=== PATIENT | male | born 1945 | race Caucasian/White ===

== ENCOUNTER 2017-08-25 09:08 | Inpatient (IN) | payer OTHER ==
[2017-07-30 13:12] VITALS: BMI 33.0
--- NOTE | 2017-07-30 13:47 | PAT Medication Instructions ---
Service Date Jul 30, 2017. Current Home Medication List Aspirin Enteric Coated (Ecotrin Or Generic *), 81 MG PO HS Losartan Potassium (Cozaar), 25 MG PO QPM Metoprolol Succ (Toprol Xl) (Toprol-Xl), 50 MG PO BID Multiple Minerals (Calcium/Magnesium/Zinc), 1 TAB PO QPM Omeprazole (Omeprazole), 1 TAB PO QDL Rosuvastatin Calcium (Crestor), 40 MG PO HS Turmeric (Curcuma Longa) (Turmeric), 1,000 MG PO QDL Medication Instructions For Your Scheduled Surgery - Hold the following medications 2 weeks prior to surgery: Turmeric (Curcuma Longa) (Turmeric), 1,000 MG PO QDL - Hold the following medications 24 hours prior to surgery: Losartan Potassium (Cozaar), 25 MG PO QPM - Take the following medications the morning of surgery with a sip of water OTHERWISE NOTHING TO EAT OR DRINK AFTER MIDNIGHT: Metoprolol Succ (Toprol Xl) (Toprol-Xl), 50 MG PO BID Omeprazole (Omeprazole), 1 TAB PO QDL - Take the following medications as scheduled the night before surgery: Metoprolol Succ (Toprol Xl) (Toprol-Xl), 50 MG PO BID Aspirin Enteric Coated (Ecotrin Or Generic *), 81 MG PO HS Rosuvastatin Calcium (Crestor), 40 MG PO HS Multiple Minerals (Calcium/Magnesium/Zinc), 1 TAB PO QPM If you have any questions please call us at [phone] or [phone] or [phone]
--- NOTE | 2017-07-30 14:32 | History and Physical ---
History & Physical Date Jul 30, 2017. Chief Complaint Right knee pain History of Present Illness Mr Thomas is a 72 year old male who is here for a follow up of right knee pain. He presents with pain, crepitus, decreased rom and stiffness on the right side. He states that the symptoms have been chronic non-traumatic. The symptoms occur intermittently. The problem is worse. Currently the patient states that the symptoms are moderate-severe. The pain is described as aching, discomforting and throbbing. The symptoms occur intermittently. The symptoms are aggravated by ascending stairs, daily activities, descending stairs, driving, first steps while awake, kneeling, repetitive activities, sleeping on the affected side, squatting and walking. Parth states that the symptoms are relieved by no specific activity. In addition to right knee pain the patient is also experiencing decreased mobility, difficulty bending, difficulty going to sleep, limping, nighttime awakening, pain, stiffness, tenderness and weakness. Pertinent negatives include chills and fever. The patient has had a previous x- ray. New x-rays obtained today in our office. He has been treated with a corticosteroid injection on the right side. Patient has been treated with Supartz series of 3 injections, patient reports no relief with previous injections. Patient has had arthroscopic surgery. 06/15/2012 Dr. Stone performed arthroscopic partial lateral meniscectomy, right knee, arthroscopic chondroplasty, lateral tibial plateau, lateral femoral condyle and patellofemoral joint, right knee and manipulation, left knee under anesthesia. Dr. Stone performed Left TKA on Pt. Past Medical/Surgical History Hypertension High Cholesterol GERD h/o left TKA h/o Right TSA Additional History Hepatic Disease: No Endocrine Disorder: No Kidney Disease: No Hypertension: Yes Allergies Coded Allergies: No Known Allergies (Verified , 07/30/17) Home Medications Scheduled Aspirin Enteric Coated (Ecotrin Or Generic *), 81 MG PO HS Losartan Potassium (Cozaar), 25 MG PO QPM Metoprolol Succ (Toprol Xl) (Toprol-Xl), 50 MG PO BID Multiple Minerals (Calcium/Magnesium/Zinc), 1 TAB PO QPM Omeprazole (Omeprazole), 1 TAB PO QDL Rosuvastatin Calcium (Crestor), 40 MG PO HS Turmeric (Curcuma Longa) (Turmeric), 1,000 MG PO QDL Physical Examination Skin: warm/dry, no rash Eyes: normal inspection, EOMI, sclerae normal ENT: normal ENT inspection, pharynx normal Head: normocephalic, atraumatic Respiratory/Chest: lungs clear, normal breath sounds, no respiratory distress Addiitonal Comments: Physical Exam Exam Findings Details Knee ROM L * Active ROM - Flexion: 135 degrees, Extension: 0 degrees, Factors: normal, Description: active pain free range of motion. Passive ROM - Flexion: 135 degrees, Extension: 0 degrees, Factors: normal, Description: passive pain free range of motion. Knee ROM R * Active ROM - Flexion: 120 degrees, Extension: 3 degrees, Factors: pain, Description: active painful range of motion. Passive ROM - Flexion: 125 degrees, Extension: 3 degrees, Factors: pain, Description: passive painful range of motion. Strength LE Normal Strength Description - Normal lower extremity: Bilateral. Hip : Right: strength is normal. Knee: Right: strength is normal. Ankle/Foot: Right : strength is normal. Knee * Inspection - Gait: limp. Alignment - Right: neutral, Left: neutral. Ecchymosis - Right: negative, Left: negative. Effusion - Right: mild, Left: normal. Skin - Left: surgical scars. Swelling - Right: mild, Left: none. Flexibility - Right: normal, Left: normal. Maximum tenderness - Right: medial joint line, lateral joint line, patella, Left: normal. Patella exam - Crepitation - Right: mild, Left: normal. Patella position - Right: neutral, Left : neutral. Tilt - Right: equal, Left: normal. Lucinda's - lateral - Right: Positive. [facility]'s - medial - Right: Positive. Knee Comments No calf tenderness Knee Normal Inspection - Atrophy - Right: Absent, Left: Absent. Skin - Right: Normal. Patella exam - Apprehension - Right: Negative, Left: Negative. Q-angle - Right: Normal, Left: Normal. Domenica's - Right: Negative, Left: Negative. Lucinda's - lateral - Left: Negative. Lucinad's - medial - Left: Negative. Posterior drawer - Right: Negative, Left: Negative. Anterior drawer - Right: Negative, Left: Negative. Valgus stress - Right: Negative, Left: Negative. Varus stress - Right: Negative, Left: Negative. Extensor lag - Right: Normal. Neurovascular LE Normal Neurovascular examination including reflexes, sensation , and pulses is within normal limits. Knee X-Ray: Xrays reviewed of the right knee showing findings consistent with degenerative joint disease including joint space narrowing, subchondral sclerosis and peripheral osteophyte formation. no acute bony pathology, overall valgus alignment. Impression: degenerative joint disease of the right knee with no acute bony pathology noted. Diagnosis Right knee DJD Further care discussed with patient and at this point in time has failed conservative measures and would like to proceed with a right total knee replacement. Plan on discharge will be home with home health physical therapy. DVT prophalaxis with TEDs, SCDs and will also place on aspirin 81 mg p.o. b.i.d. for a month postop. Patient will have follow up appointment in our office two weeks post op for staple/suture removal and re-evaluation. Patient otherwise has no other questions or concerns.
--- NOTE | 2017-07-30 14:37 | DIAGNOSTIC IMAGING REPORT ---
CHEST 2 VIEWS ROUTINE CLINICAL HISTORY: Preoperative evaluation. COMPARISON STUDY: Chest radiograph November 05, 2010. FINDINGS: Lung volumes are normal. No pneumothorax or pleural effusion is present. There is no consolidation to suggest pneumonia. Minimal opacity along the left heart border likely reflects atelectasis or epicardial fat pad. Cardiac size is normal. There is a possible hiatal hernia. There is no evidence of pulmonary edema. IMPRESSION: No acute cardiopulmonary findings. Electronically signed by: Socrates Shaikh M.D. 07/30/2017 2:36 PM Dictated Date/Time: 07/30/2017 2:35 PM
[2017-07-30 16:01] LABS: BASO % 0.4 %; BASO ABS # 0.02 K/uL (0-0.2); COMPLETE YES; EOS % 3.1 %; HEMATOCRIT 46.2 % (42-52); IG% 0.4 %; LYMPH % 31.9 %; LYMPH ABS # 1.65 K/uL (1.2-3.4); MEAN CELL VOLUME 88.8 fL (80-100); MEAN CORPUSCULAR HEMOGLOBIN 30.4 pg (25-34); MEAN CORPUSCULAR HGB CONC 34.2 g/dl (32-36); NEUT % 53.2 %; PLATELET COUNT 138 K/uL (130-400); WHITE BLOOD COUNT 5.17 K/uL (4.8-10.8)
[2017-07-30 16:22] LABS: PROTHROMBIN TIME (PATIENT) 10.7 SECONDS (9.0-12.0); URINE APPEARANCE CLEAR (CLEAR); URINE BILIRUBIN NEG (NEG); URINE COLOR YELLOW; URINE NITRITE NEG (NEG); URINE SPECIFIC GRAVITY 1.019 (1.000-1.030); UROBILINOGEN NEG (NEG)
[2017-07-30 16:27] LABS: MANUAL MICROSCOPIC REQUIRED? NO; REVIEW REQ? NO
[2017-07-30 16:35] LABS: BUN/CREATININE RATIO 13.7 (10-20); CALCIUM 8.8 mg/dl (8.5-10.1); CREATININE 0.85 mg/dl (0.60-1.40); POTASSIUM 4.1 mmol/L (3.5-5.1)
[2017-07-31 08:40] LABS: ESTIMATED AVERAGE GLUCOSE 117 mg/dl; HA1C FLAG Normal (Normal)
[2017-08-25] VITALS (9 sets, daily range): BP systolic 112–179; BP diastolic 66–93; PULSE 56–67; TEMP 36.3–36.8; O2SAT 93–98; Ht 182.9 cm; Wt 111.8 kg
[~2017-08-25] VITALS: Ht 182.9 cm; Wt 111.8 kg
[2017-08-25] MEDS: TRANEXAMIC ACID INJ 1,000 MG in SODIUM CHLORIDE 0.9% 100ML 100 ML IV SCH ×2 (06:30→11:08)
--- NOTE | 2017-08-25 07:05 | History & Physical Bridge Note ---
H&P Re-Evaluation Bridge Note: I have examined the patient, reviewed the History & Physical and in the interval since the performance of the History & Physical I have noted the following changes of clinical significance: No changes noted
[~2017-08-25 09:08] MED LIST: ACETAMINOPHEN 500 MG TAB PO SCH; ASPEC81 PO; BUPIVACAINE 0.25% 30 ML VIAL ONE; BUPIVACAINE 0.5 % 5 MG/1 ML PF 10ML VIAL ONE; CEFAZOLIN 2000 MG/60 ML D5W 60 ML IV SCH; CRS/10 PO; CeleBREX 200 MG CAP PO SCH; DEXAMETHASONE 4 MG TAB PO SCH; FAMOTIDINE 20 MG TAB PO SCH; FENTANYL CITRATE INJ 50 MCG/1 ML 2 ML VIAL ONE; GABAPENTIN 300 MG CAP PO SCH; LACTATED RINGER'S 1000ML 1,000 ML IV SCH; LACTATED RINGER'S 1000ML IV SCH; LACTATED RINGER'S 500 ML IV SCH; LOSA1TAB PO; METO50TA7 PO; METOCLOPRAMIDE HCL 10 MG TAB PO SCH; MIDAZOLAM HCL 1 MG/ML 2ML VIAL ONE; OMEP20TA PO; ROPIVACAINE 5MG/ML 30 ML 150 MG, BUPIVACAINE/EPINEPHR 0.5% MPF 30 ML, KETOROLAC TROMETH... INFIL SCH; TURM500T PO; [UNRECOGNIZED DRUG - CODE] PO
[2017-08-25] MEDS ORDERED: BACITRACIN 50000 UNIT VIAL ONE (11:12)
[2017-08-25] MEDS ORDERED: POVIDONE-IODINE OP SOLN 30 ML BTL ONE (11:12)
[2017-08-25] MEDS ORDERED: ORTHO JOINT ANESTHETIC ONE (11:12)
[2017-08-25] MEDS ORDERED: ATROPINE SULFATE 0.1 MG/ML 5ML SYR IV PRN (11:45)
[2017-08-25] MEDS ORDERED: EpHEDrine SULFATE INJ 50 MG/ML AMP IV PRN (11:45)
[2017-08-25] MEDS ORDERED: PHENYLEPHRINE 100MCG/ML 5ML SYR IV PRN (11:45)
[2017-08-25] MEDS ORDERED: KETOROLAC TROMETHAMINE 15 MG/ML VIAL IV. PRN ×2 (11:45→13:30)
[2017-08-25] MEDS ORDERED: HYDROmorphone INJ 2 MG/ML SYR/VIAL IV PRN (11:45)
[2017-08-25] MEDS ORDERED: ONDANSETRON INJ 2 MG/ML 2 ML VIAL IV PRN ×2 (11:45→13:30)
[2017-08-25] MEDS ORDERED: PROPOFOL IV EMULSION 10 MG/ML 20 ML VIAL IV ONE ×2 (11:52→12:26)
[2017-08-25] MEDS ORDERED: LIDOCAINE HCL 2% 2 ML VIAL (20MG/ML) ONE (11:52)
[2017-08-25] MEDS ORDERED: MIDAZOLAM HCL 1 MG/ML 2ML VIAL ONE (11:54)
[2017-08-25] MEDS ORDERED: CEFAZOLIN SOD 1 GM VIAL ONE (12:03)
[2017-08-25] MEDS ORDERED: SODIUM CHLORIDE 0.9% INJ 10 ML VIAL ONE (12:03)
--- NOTE | 2017-08-25 12:58 | [facility] Operative Report ---
Operative Report Operative Date Aug 25, 2017. Pre-Operative Diagnosis right knee osteoarthritis Post-Operative Diagnosis right knee osteoarthritis Procedure(s) Performed right knee total arthroplasty right total knee arthroplasty doesn't [employer] journey 2 patient matched total knee with block size 7 femur 7 tibia 15 Georgina [address] Iain Stone Digital Strategist Senior Manager Surgeon(s) Britton Latif PA-C Estimated Blood Loss 5cc Findings Patient presents with severe end-stage tricompartmental degenerative joint disease varus alignment large medial osteophyte subchondral sclerosis and DJD of failing attempts at conservative management including injections anti- inflammatories relative rest activity modification Specimens Right knee bone and tissue Complication(s) None Disposition Recovery Room / PACU Indications Patient presents after failing attempts at conservative management approximately degenerative be subchondral cystic changes varus alignment DJD medial lateral patellofemoral compartment with bone to bone exposure of presents presents after failing times a conservative management for total knee arthroplasty Description of Procedure After proper prepping and draping of the Right lower extremity anterior midline incision was made over the region of the extensor extensor mechanism after meticulous hemostasis was obtained and maintained in subcutaneous tissues a medial parapatellar incision was made The patella was subluxed lateralward the medial lateral gutter were cleaned from any hypertrophic synovitis and scar tissue of the distal femoral block was placed and the distal femoral osteotomy cut was made subsequently the chamfers anterior and posterior osteotomy cuts were made utilizing the 4-in-1 block the tibia was subsequently subluxed anteriorward medial and ateral meniscal remnants were excised in their entirety remnants of the anterior and posterior cruciate ligaments were excised in their entirety excellent exposure of the proximal tibia was obtained the tibial osteotomy guide was placed on the proximal tibial osteotomy cut was made once again the knee was irrigated with copious amounts of sterile saline solution the patella was subsequently everted lateralward thickened scar tissue around the patella was removed the patella was subsequently cut utilizing a freehand technique and was drilled prepared for final preparation and placement of patella socially flexion-extension gaps were checked and the equal and symmetric trials were placed to the appropriate femoral and tibial trials with poly-spacer being placed for equal flexion and extension gaps and full range of motion including extension to 0 and flexion to 140 the trial components after having been taken to recovery range of motion was subsequently removed meticulous hemostasis was obtained and maintained subsequently a knee block injection of joint cocktail including ropivacaine 0.5% 150 mg. Bupivacaine 0.5 % epinephrine 1-200,030 mL's toradol 30 mg dexamethasone 4 mg ketamine 10 mg clonidine 100 micrograms normal saline solution 30 mg was infiltrated into the soft tissues of the posterior knee medial lateral gutters and periosteal synovium special attention was paid to protect neurovascular structures at all times subsequently trial components having been removed the knee was irrigated with sterile saline solution. debris was removed the proximal tibia was subsequently prepared and was made ready for the placement of the tibial component tibial component was also cemented and tamped into position the femoral component was subsequently placed and cemented in the position the patellar component was subsequently cemented in position because hemostasis once again obtained and maintained wound having been thoroughly irrigated with debridement and debridement lavage was performed as well as a medial parapatellar incision closed with #1 Vicryl in interrupted fashion subcutaneous was closed with #2 Vicryl skin was closed with skin clips. PA-C was necessary for prepping and drapping as well as wound closure of deep fascia Sub cutaneous tissue and skin and was necessary for the case. A sterile compressive dressing was placed patient was taken to recovery in stable condition of report dictated by Chase I attest to the content of the Intraoperative Record and any orders documented therein. Any exceptions are noted below. I attest to the content of the Intraoperative Record and any orders documented therein. Any exceptions are noted below.
[2017-08-25] MEDS ORDERED: MoRPHine SULFATE 2 MG/ML CARP IV PRN ×2 (13:30→14:15)
[2017-08-25] MEDS ORDERED: ZOLPIDEM TARTRATE 5 MG TAB PO PRN (13:30)
[2017-08-25] MEDS ORDERED: MAGNESIUM HYDROXIDE SUSP 30 ML UDC PO PRN (13:30)
[2017-08-25] MEDS ORDERED: ALUMINUM/MAGNESIUM/SIMETH (MAALOX MAX) 30 ML UDC PO PRN (13:30)
[2017-08-25] MEDS ORDERED: SOD PHOSPHATE/SOD BIPHOSPHATE ENEMA 132 ML BTL PR PRN (13:30)
[2017-08-25] MEDS ORDERED: BISACODYL 10 MG SUPP PR PRN (13:30)
[2017-08-25] MEDS ORDERED: TRAMADOL HCL 50 MG TAB PO PRN (13:30)
[2017-08-25] MEDS ORDERED: MoRPHine SULFATE 4 MG/ML 1 ML CARP\\VIAL IV PRN (14:15)
[2017-08-25] MEDS ORDERED: MoRPHine SULFATE 10 MG/ML CARP/VIAL IV PRN (14:15)
--- NOTE | 2017-08-25 14:35 | DIAGNOSTIC IMAGING REPORT ---
R KNEE 1 OR 2 VIEWS ROUTINE CLINICAL HISTORY: 72 years-old Male presenting with AP/LATERAL IN PACU RIGHT KNEE. TECHNIQUE: Frontal and lateral views of the right knee were obtained. COMPARISON: None. FINDINGS: Postsurgical changes of total right knee arthroplasty with patellar resurfacing. Surgical drain and intra-articular gas noted. No malalignment or acute fracture. No hardware convocation. Osseous fragment along the medial tibial plateau likely from prior osteophyte although no prior imaging is available for comparison. IMPRESSION: Expected postsurgical changes status post total right knee arthroplasty. Electronically signed by: Diaz Orta M.D. 08/25/2017 2:33 PM Dictated Date/Time: 08/25/2017 2:32 PM
--- NOTE | 2017-08-25 14:43 | Anesthesiology Progress Note ---
Anesthesia Post Op Note Date & Time Aug 25, 2017 at 14:42 Vital Signs Vital Signs Past 12 Hours Date Time Temp Pulse Resp B/P (MAP) Pulse Ox O2 Delivery O2 Flow Rate FiO2 08/25/17 14:25 36.4 61 16 131/73 96 Nasal Cannula 2 08/25/17 14:15 36.4 63 16 129/74 95 Nasal Cannula 2 08/25/17 14:05 55 16 118/69 95 Nasal Cannula 2 08/25/17 13:55 55 16 115/82 96 Nasal Cannula 2 08/25/17 13:45 58 16 134/70 95 Nasal Cannula 2 08/25/17 13:35 58 16 116/64 95 Nasal Cannula 2 08/25/17 13:26 36.3 59 14 159/66 96 Nasal Cannula 2 08/25/17 09:42 36.6 56 16 179/93 98 Room Air Notes Mental Status: alert / awake / arousable, participated in evaluation Pt Amnestic to Procedure: Yes Nausea / Vomiting: adequately controlled Pain: adequately controlled Airway Patency, RR, SpO2: stable & adequate BP & HR: stable & adequate Hydration State: stable & adequate Anesthetic Complications: no major complications apparent
[2017-08-25] MEDS: D5W AND 1/2NSS + 20MEQ KCL 1,000 ML IV SCH (16:46)
[2017-08-25] MEDS: ACETAMINOPHEN 500 MG TAB PO SCH (18:26)
[2017-08-25] MEDS: CEFAZOLIN IV 2,000 MG in DEXTROSE 5% 50ML 50 ML IV SCH (20:27)
[2017-08-25] MEDS: LOSARTAN POTASSIUM 25 MG TAB PO SCH (22:21)
[2017-08-25] MEDS: ROSUVASTATIN CALCIUM 20 MG TAB PO SCH (22:21)
[2017-08-25] MEDS: DOCUSATE SODIUM 100 MG CAP PO SCH (22:21)
[2017-08-25] MEDS: METOPROLOL SUCC 50MG EXT REL TAB PO SCH (22:21)
[2017-08-25] MEDS: SENNA 8.6 MG TAB PO SCH (22:21)
[2017-08-25] MEDS: ASPIRIN 81 MG ECTAB PO SCH (22:21)
[2017-08-26] VITALS (7 sets, daily range): BP systolic 115–140; BP diastolic 65–79; PULSE 52–61; TEMP 36.3–36.8; O2SAT 91–97
[2017-08-26] MEDS: ACETAMINOPHEN 500 MG TAB PO SCH ×3 (02:31→18:11)
[2017-08-26] MEDS: D5W AND 1/2NSS + 20MEQ KCL 1,000 ML IV SCH ×2 (02:31→12:32)
[2017-08-26] MEDS: CEFAZOLIN IV 2,000 MG in DEXTROSE 5% 50ML 50 ML IV SCH (03:49)
--- NOTE | 2017-08-26 07:02 | Orthopedic Progress Note ---
Orthopedic Progress Note Date of Service Aug 26, 2017. Subjective Post OP Day: 1 Reports: feeling well, Denies: complaints Objective calves soft nontender, N/V intact, dressing C/D/I, A&O x3, toes mobile Date Time Temp Pulse Resp B/P (MAP) Pulse Ox O2 Delivery O2 Flow Rate FiO2 08/26/17 03:26 36.8 60 16 122/67 (85) 93 Room Air 08/25/17 23:40 Room Air 08/25/17 23:22 36.4 60 18 119/66 (83) 95 Room Air 08/25/17 22:19 64 130/75 (93) 08/25/17 20:40 36.4 57 18 112/70 (84) 93 Room Air 08/25/17 17:50 36.5 58 16 114/73 (87) 98 Room Air 08/25/17 16:50 36.8 62 18 119/70 (86) 95 Room Air 08/25/17 16:09 Room Air 08/25/17 15:50 36.3 61 16 129/77 (94) 97 Nasal Cannula 3.0 08/25/17 15:20 36.7 57 18 125/74 (91) 96 Nasal Cannula 2.0 08/25/17 15:11 36.5 67 18 132/79 (96) 97 Nasal Cannula 2.0 08/25/17 15:07 97 Nasal Cannula 2.0 08/25/17 14:25 36.4 61 16 131/73 96 Nasal Cannula 2 08/25/17 14:15 36.4 63 16 129/74 95 Nasal Cannula 2 08/25/17 14:05 55 16 118/69 95 Nasal Cannula 2 08/25/17 13:55 55 16 115/82 96 Nasal Cannula 2 08/25/17 13:45 58 16 134/70 95 Nasal Cannula 2 08/25/17 13:35 58 16 116/64 95 Nasal Cannula 2 08/25/17 13:26 36.3 59 14 159/66 96 Nasal Cannula 2 08/25/17 09:42 36.6 56 16 179/93 98 Room Air Laboratory Results 24 Hours: Test 08/26/17 06:41 Additional Notes: Labs pending Assessment & Plan Assessment: POD 1 s/p Right TKA Plan: PT/OT Planning for OPPT Inhouse Planning Pain Management: Celebrex, Toradol, Ultram, Morphine, PO Tylenol, Oxy IR DVT Prophylaxis: TEDs, SCDs, ASA Discharge Planning Discharge Planning: home with oppt
[2017-08-26 07:22] LABS: HEMATOCRIT 41.3 % (42-52); MEAN CELL VOLUME 88.2 fL (80-100); MEAN CORPUSCULAR HGB CONC 35.1 g/dl (32-36); MEAN PLATELET VOLUME 10.1 fL (7.4-10.4); PLATELET COUNT 160 K/uL (130-400); RED BLOOD COUNT 4.68 M/uL (4.7-6.1); WHITE BLOOD COUNT 16.89 K/uL (4.8-10.8)
[2017-08-26 07:31] LABS: PROTHROMBIN TIME (PATIENT) 10.8 SECONDS (9.0-12.0)
--- NOTE | 2017-08-26 07:43 | Discharge Instructions ---
Discharge Instructions Date of Service Aug 26, 2017. Admission Reason for Admission: Right Knee Osteoarthritis Discharge Discharge Diagnosis / Problem: s/p Right TKA Discharge Goals Goal(s): Decrease discomfort, Improve function, Increase independence Activity Recommendations Activity Limitations: as noted below Weightbearing Status: Right weightbearing (as tolerated) . Instructions / Follow-Up Instructions / Follow-Up ACTIVITY RECOMMENDATIONS: SELF CARE INSTRUCTIONS AFTER TOTAL KNEE REPLACEMENT A. You may need to continue a physical therapy program after discharge from the hospital. There are several options available to you. Your doctor will assist you in selecting the best one for you. 1. An out-patient facility 2 to 3 times a week for therapy or home therapy. 2. Continue working on all exercises taught to you in the hospital. Your goals should be to increase bending of your knee to 90 degrees and beyond and to fully straighten your knee. B. You may progress at your own pace from walking with a walker or crutches to a cane; then to no assistive devices. C. Make walking a part of your daily routine. Be up as much as comfortable with rest periods throughout the day. Rest with leg elevation is very important. Use the ice wrap frequently for the first 3-4 weeks. D. There are no restrictions on activities. You may ride in a car, shop, participate in assembler billiard table and all social activities. E. Wear the long elastic stockings (SCOTT hose) 20 hours a day for 2 weeks after surgery. They can be removed several times a day for laundering and for a bath. F. You may shower, no tub baths until cleared by your doctor. SPECIAL CARE INSTRUCTIONS: VERY IMPORTANT TO READ AND REVIEW A. There are a few signs you need to watch for after you are home. Call [facility] if you notice any of the followin. Increased severe knee pain. Some pain is expected especially when you exercise. 2. Increased swelling in your leg or knee; pain or swelling of the calf muscle in either lower leg. 3. Any fluid drainage from the incision. 4. Shortness of breath or chest pain. B. Please call [facility] at if you have any concerns or questions about your operation or recovery. The doctor or his nurse will return your call promptly. C. You must take antibiotics before dental work, bladder, bowel or other surgery. Your doctor will provide you with a permanent care to carry describing this precaution. IMPORTANT: * REMEMBER TO TAKE ASPIRIN, 81 MG, TWICE DAILY FOR 4 WEEKS UNLESS OTHERWISE DIRECTED. THIS IS YOUR BLOOD THINNER. * HIGH RISK PATIENTS MAY BE PRESCRIBED A STRONGER BLOOD THINNER. THIS WILL BE PROVIDED AT DISCHARGE. * CALL IF INCREASED PAIN, REDNESS, DRAINAGE OR FEVER GREATER THAT 101. * WEAR SCOTT HOSE 20 HOURS PER DAY FOR 2 WEEKS. * DERMABOND Prineo- This is a mesh tape dressing that is covered with glue. It should remain in place until the incision is properly healed, usually 10-14 days. This dressing is designed to naturally slough off. You may trim the excess mesh tape as it peels off. Incision may be briefly wet in a shower. Dry immediately by blotting with a clean, dry towel. Do not bath or swim until instructed by your doctor. Do not scratch, rub, or pick at the dressing. Do not apply any topical ointments or lotions until dressing is completely removed and/or instructed by your doctor. There may be a small piece of suture material at one end of your incision. Do not pull or trim this. If it is bothersome or catching on clothing, you may cover it with a band-aid. FOLLOW UP VISIT: If appointment is not already scheduled: Please call [facility] to make a follow-up appointment for 2 weeks after your surgery at . Current Hospital Diet Patient's current hospital diet: Regular Diet Discharge Diet Recommended Diet: Regular Diet Procedures Procedures Performed: right knee total arthroplasty right total knee arthroplasty doesn't [employer]in [employer] Nephew journey 2 patient matched total knee with block size 7 femur 7 tibia 15 Georgina 38 oval patella Pending Studies Studies pending at discharge: no Laboratory Results Hemoglobin A1c Test 07/30/17 13:53 Range/Units Estimated Average Glucose 117 mg/dl Hemoglobin A1c 5.7 H 4.5-5.6 % Medical Emergencies . Who to Call and When: Medical Emergencies: If at any time you feel your situation is an emergency, please call 911 immediately. . Non-Emergent Contact Non-Emergency issues call your: Primary Care Provider, Surgeon . "Provider Documentation" section prepared by Britton Latif. . VTE Core Measure Inpt VTE Proph given/why not?: Other Anticoagulation (ASA 81mg po bid x 1 month ), T.E.D. Stockings, SCD's [place] Drug Monitoring Program Search Results: patient reviewed within database, no issues identified
[2017-08-26 07:57] LABS: BUN/CREATININE RATIO 13.6 (10-20); CALCIUM 9.2 mg/dl (8.5-10.1); CREATININE 0.98 mg/dl (0.60-1.40); POTASSIUM 4.3 mmol/L (3.5-5.1)
[2017-08-26] MEDS: OXYCODONE HCL IR 5 MG TAB (IMMEDIATE RELEASE) PO PRN ×4 (08:04→23:19)
[2017-08-26] MEDS: ASPIRIN 81 MG ECTAB PO SCH ×2 (09:10→20:43)
[2017-08-26] MEDS: PANTOprazole SOD 40 MG TAB PO SCH (09:10)
[2017-08-26] MEDS: DOCUSATE SODIUM 100 MG CAP PO SCH ×2 (09:10→20:43)
[2017-08-26] MEDS: MULTIVITAMIN TAB PO SCH (09:11)
[2017-08-26] MEDS: METOPROLOL SUCC 50MG EXT REL TAB PO SCH ×2 (09:11→20:45)
[2017-08-26] MEDS ORDERED: TURMERIC 1000 MG PO SCH (11:00)
--- NOTE | 2017-08-26 11:03 | Anesthesiology Progress Note ---
Anesthesia Post Op Note Date & Time Aug 26, 2017 at 11:03 Vital Signs Pain Intensity: 7.0 Vital Signs Past 12 Hours Date Time Temp Pulse Resp B/P (MAP) Pulse Ox O2 Delivery O2 Flow Rate FiO2 08/26/17 08:15 36.8 55 16 115/66 (82) 93 Room Air 08/26/17 08:06 Room Air 08/26/17 03:26 36.8 60 16 122/67 (85) 93 Room Air 08/25/17 23:40 Room Air 08/25/17 23:22 36.4 60 18 119/66 (83) 95 Room Air Notes Mental Status: alert / awake / arousable, participated in evaluation Pt Amnestic to Procedure: Yes Nausea / Vomiting: adequately controlled Pain: adequately controlled Airway Patency, RR, SpO2: stable & adequate BP & HR: stable & adequate Hydration State: stable & adequate Neuraxial Anesthesia: was administered, sensory block resolved Anesthetic Complications: no major complications apparent
[2017-08-26] MEDS: SENNA 8.6 MG TAB PO SCH (20:43)
[2017-08-26] MEDS: LOSARTAN POTASSIUM 25 MG TAB PO SCH (20:43)
[2017-08-26] MEDS: ROSUVASTATIN CALCIUM 20 MG TAB PO SCH (20:43)
[2017-08-26] MEDS: CeleBREX 200 MG CAP PO SCH (20:43)
[2017-08-27] MEDS: ACETAMINOPHEN 500 MG TAB PO SCH ×2 (01:55→10:49)
[2017-08-27 06:28] VITALS: BP 132/73; PULSE 56; TEMP 36.3; O2SAT 98
[2017-08-27] MEDS: PANTOprazole SOD 40 MG TAB PO SCH (08:00)
[2017-08-27] MEDS: MULTIVITAMIN TAB PO SCH (08:00)
[2017-08-27] MEDS: OXYCODONE HCL IR 5 MG TAB (IMMEDIATE RELEASE) PO PRN ×2 (08:03→12:47)
[2017-08-27] MEDS: DOCUSATE SODIUM 100 MG CAP PO SCH ×2 (08:39→09:08)
[2017-08-27] MEDS: CeleBREX 200 MG CAP PO SCH ×2 (08:39→09:09)
[2017-08-27] MEDS: METOPROLOL SUCC 50MG EXT REL TAB PO SCH ×2 (08:39→09:08)
[2017-08-27] MEDS: ASPIRIN 81 MG ECTAB PO SCH ×2 (08:39→09:08)
[2017-08-27 09:07] VITALS: BP 161/83; PULSE 68
--- NOTE | 2017-08-27 11:30 | Orthopedic Progress Note ---
Orthopedic Progress Note Date of Service Aug 27, 2017. Subjective Post OP Day: 2 Reports: feeling well, Denies: chest pain, SOB, nausea / vomiting, light headedness, calf pain Objective calves soft nontender, N/V intact, capillary refill less than 2 sec., incision C /D/I, A&O x3, toes mobile Date Time Temp Pulse Resp B/P (MAP) Pulse Ox O2 Delivery O2 Flow Rate FiO2 08/27/17 09:07 68 161/83 (109) 08/27/17 07:10 Room Air 08/27/17 06:28 36.3 56 16 132/73 (92) 98 Room Air 08/26/17 23:01 36.4 52 16 128/70 (89) 96 Room Air 08/26/17 20:46 60 133/77 (95) 08/26/17 19:20 Room Air 08/26/17 15:05 36.4 60 18 125/75 (92) 97 Room Air 08/26/17 13:07 36.3 61 18 140/65 (90) 91 Room Air Assessment & Plan Assessment: POD 2 s/p Right TKA Plan: PT/OT Planning for OPPT DC HOME TODAY AFTER PT Inhouse Planning Pain Management: Celebrex, Toradol, Ultram, Morphine, PO Tylenol, Oxy IR DVT Prophylaxis: TEDs, SCDs, ASA Discharge Planning Discharge Planning: home with oppt
[2017-08-27] MEDS ORDERED: ACET-24 PO (11:32)
[2017-08-27] MEDS ORDERED: ONDA8TAB6 PO (11:32)
[2017-08-27] MEDS ORDERED: ASPEC81 PO (11:32)
[2017-08-27] MEDS ORDERED: SNK PO (11:32)
[2017-08-27] MEDS ORDERED: RXC5 PO (11:32)
[2017-08-27 11:57] VITALS: BP 161/83; PULSE 68; TEMP 36.3; O2SAT 98
--- NOTE | 2017-08-28 11:01 | Discharge Summary ---
Orthopedic Discharge Summary Admission Date/Reason Aug 25, 2017 at 09:30 Right Knee Osteoarthritis. Discharge Date/Disposition Aug 27, 2017 Home Diagnosis Principal Diagnosis: right knee osteoarthritis Procedure(s) Performed right knee total arthroplasty right total knee arthroplasty doesn't [employer] 2 patient matched total knee with block size 7 femur 7 tibia 15 Georgina 38 oval patella Consultations NONE Medication Reconciliation New Medications: Ondansetron Hcl (Zofran) 8 Mg Tab 8 MG PO Q8 PRN for Nausea, #20 TAB Acetaminophen (Sb Non-Aspirin Extra Stre) 500 Mg Tab 1000 MG PO Q8H for 30 Days, #180 TAB Aspirin (Aspirin EC Low Dose) 81 Mg Ectab 81 MG PO BID for 30 Days Oxycodone HCl (Oxycodone HCl) 5 Mg Tab 5-10 MG PO Q4H PRN for Pain, #60 TAB Senna (Senna Lax) 8.6 Mg Tab 17.2 MG PO HS for 14 Days, TAB Continued Medications: Losartan Potassium (Cozaar) 25 Mg Tab 25 MG PO QPM, TAB Metoprolol Succ (Toprol Xl) (Toprol-Xl) 50 Mg Tabcr 50 MG PO BID, #30 TAB Multiple Minerals (Calcium/Magnesium/Zinc) 1 Tab Tab 1 TAB PO QPM Omeprazole (Omeprazole) 20 Mg Tab 1 TAB PO QDL for 90 Days, TAB 3 Refills Rosuvastatin Calcium (Crestor) 10 Mg Tab 40 MG PO HS, TAB Turmeric (Curcuma Longa) (Turmeric) 500 Mg Tab 1000 MG PO QDL Discontinued Medications: Aspirin Enteric Coated (Ecotrin Or Generic *) 81 Mg Ectab 81 MG PO HS, 0 Refills Admission Physical Exam As per Admitting History & Physical. Hospital Course Patient was a same day admission after undergoing a successful right TKA. he tolerated the procedure well. Post-operatively, his activity was progressed and well tolerated. Please refer to daily progress notes and PT notes for complete details. After exam on 08/27/17, patient felt to be stable for discharge home with OPPT. Patient will f/u in the office in 2 weeks for further evaluation including x-rays and incision check, sooner if having any issues or concerns. Below are pertinent labs/studies during their hospital stay: Last Vital Signs Documentation Date Time Temp Pulse Resp B/P (MAP) Pulse Ox O2 Delivery O2 Flow Rate FiO2 08/27/17 11:57 36.3 68 16 98 Room Air 08/27/17 09:07 161/83 (109) 08/25/17 15:50 3.0 Last Resulted CBC 08/26/17 06:41 Last Resulted BMP 08/26/17 06:41 Discharge Instructions Please refer to the electronic Patient Visit Report (Discharge Instructions) for additional information.
== END 2017-08-27 14:00 | disposition home or self-care (01) | DRG 470 ==
LOC: C.ACU 09:08 → C.3E 09:30 → ENRESERV 14:02
PROVIDERS: ADMIT Orthopaedic Surgery; ATTEND Orthopaedic Surgery
PROC: 0SRC0J9 Replacement of Right Knee Joint with Synthetic Substitute, Cemented, Open Approach (ICD-10-PCS; principal; 2017-08-25 11:30)
DX: M17.11 Unilateral primary osteoarthritis, right knee (principal); I10 Essential (primary) hypertension; E78.00 Pure hypercholesterolemia, unspecified; K21.9 Gastro-esophageal reflux disease without esophagitis